=== PATIENT | male | born 1955 | race African-American/Black ===

== ENCOUNTER 2023-11-21 17:01 | Observation (INO) | payer MEDICARE, OTHER ==
[2023-11-21] MEDS: SODIUM CHLORIDE 0.9% 1,000 ML IV ONE ×2 (17:33→18:56)
[2023-11-21 17:50] LABS: Basophils % (A) 0 %; Eosinophils % (A) 1 %; HCT 43.3 % (39.0-53.0); HGB 13.7 gm/dL (13.0-17.5); Lymphocytes # (A) 1.4 k/uL (1.0-4.8); Lymphocytes % (A) 21 %; MCH 30.4 pg (25.0-35.0); MCHC 31.6 g/dL (31.0-37.0); MCV 96.2 fL (80.0-100.0); Mean Platelet Volume 7.6; Monocytes # (A) 0.5 k/uL (0-1.0); Monocytes % (A) 7 %; Neutrophils # (A) 4.5 k/uL (1.3-7.7); Neutrophils % (A) 69 %; Platelet Count 238 k/uL (150-450); RBC 4.51 m/uL (4.30-5.90); WBC 6.6 k/uL (3.8-10.6)
[2023-11-21 17:55] LABS: INR 1.1 (<1.2); Partial Thromboplastin Time 25.8 sec (22.0-30.0); Prothrombin Time 12.3 sec (10.0-12.5)
[2023-11-21 18:07] LABS: ALT 32 U/L (4-49); AST 59 U/L (17-59); African American GFR (CKD) 38 (>60 ml/min/1.73 sqM); Alkaline Phosphatase 78 U/L (38-126); Anion Gap 9 mmol/L; Blood Urea Nitrogen 41 mg/dL (9-20); Carbon Dioxide 34 mmol/L (22-30); Chloride 85 mmol/L (98-107); Glucose 97 mg/dL (74-99); Magnesium 2.1 mg/dL (1.6-2.3); Non-African American GFR(CKD) 33 (>60 ml/min/1.73 sqM); Sodium 128 mmol/L (137-145); Total Bilirubin 0.7 mg/dL (0.2-1.3); Total Protein 6.8 g/dL (6.3-8.2)
--- NOTE | 2023-11-21 18:24 | ED ---
General Adult HPI - General Chief complaint: Syncope Stated complaint: near syncope Time Seen by Provider: 11/21/23 17:09 Source: patient Mode of arrival: EMS Limitations: no limitations - History of Present Illness Initial comments: 68-year-old male presents to the emergency department from [place]. 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 Patient fell, possibly striking his head. He does not believe he was out for very long as he does remember most of the event. He is not on any blood thinners. He den ies any headache or visual changes. No lateralizing weakness. Patient believes that he passed out because he has not been eating or working. Patient has been detoxing from alcohol, cocaine and opiates for the past week. He was hospitalized in [place] and then transferred to [place] today. He used to drink 1/5 of alcohol plus several beers a day. Patient reports that he was placed on Suboxone for his withdrawals. He denies any history of cardiac disease. No chest pain or difficulty breathing. No nausea or vomiting at this time. No other alleviating, precipitating or modifying factors - Related Data Home Medications Medication Instructions Recorded Confirmed Pantoprazole Sodium [Protonix] 20 mg PO DAILY 11/21/23 11/21/23 amLODIPine [Norvasc] 10 mg PO DAILY 11/21/23 11/21/23 lisinopriL [Prinivil] 20 mg PO DAILY 11/21/23 11/21/23 Allergies Allergy/AdvReac Type Severity Reaction Status Date / Time codeine AdvReac Rash/Hives Verified 11/21/23 17:57 Review of Systems ROS Statement: Those systems with pertinent positive or pertinent negative responses have been documented in the HPI. ROS Other: All systems not noted in ROS Statement are negative. Past Medical History Past Medical History: Hypertension Additional Past Medical History / Comment(s): gastritis History of Any Multi-Drug Resistant Organisms: None Reported Past Surgical History: Tonsillectomy Smoking Status: Current every day smoker Past Alcohol Use History: Abuse, Daily, Heavy Past Drug Use History: Cocaine, Opiates - Past Family History Father Family Medical History: Hyperlipidemia General Exam Limitations: no limitations General appearance: alert, in no apparent distress Head exam: Present: normocephalic, other (Small hematoma right forehead) Eye exam: Present: normal appearance, PERRL, EOMI. Absent: scleral icterus, conjunctival injection, periorbital swelling ENT exam: Present: normal exam, mucous membranes moist Neck exam: Present: normal inspection. Absent: tenderness, meningismus, lymphadenopathy Respiratory exam: Present: normal lung sounds bilaterally. Absent: respiratory distress, wheezes, rales, rhonchi, stridor Cardiovascular Exam: Present: regular rate, normal rhythm, normal heart sounds. Absent: systolic murmur, diastolic murmur, rubs, gallop, clicks GI/Abdominal exam: Present: soft, normal bowel sounds. Absent: distended, tenderness, guarding, rebound, rigid Extremities exam: Present: normal inspection, full ROM, normal capillary refill. Absent: tenderness, pedal edema, joint swelling, calf tenderness Back exam: Present: normal inspection Neurological exam: Present: alert, oriented X3, CN II-XII intact Psychiatric exam: Present: normal affect, normal mood Skin exam: Present: warm, dry, intact, normal color. Absent: rash Course Vital Signs 11/21/23 11/21/23 11/21/23 17:04 18:13 18:40 Temperature 98 F Pulse Rate 89 90 88 Pulse Rate [ Sitting] Pulse Rate [ Standing] Pulse Rate [ Supine] Respiratory 22 20 20 Rate Blood Pressure 95/64 142/93 111/74 Blood Pressure [Left Arm Supine] Blood Pressure [Sitting] Blood Pressure [Standing] O2 Sat by Pulse 99 99 96 Oximetry 11/21/23 11/21/23 11/21/23 19:15 20:23 22:00 Temperature Pulse Rate 92 81 Pulse Rate [ 96 Sitting] Pulse Rate [ 93 Standing] Pulse Rate [ 84 Supine] Respiratory 18 16 Rate Blood Pressure 110/67 110/71 Blood Pressure 111/79 [Left Arm Supine] Blood Pressure 116/74 [Sitting] Blood Pressure 106/69 [Standing] O2 Sat by Pulse 97 96 Oximetry 11/22/23 11/22/23 11/22/23 00:00 02:00 04:00 Temperature Pulse Rate 80 80 81 Pulse Rate [ Sitting] Pulse Rate [ Standing] Pulse Rate [ Supine] Respiratory 16 16 16 Rate Blood Pressure 95/59 109/73 101/61 Blood Pressure [Left Arm Supine] Blood Pressure [Sitting] Blood Pressure [Standing] O2 Sat by Pulse 95 96 95 Oximetry 11/22/23 11/22/23 05:03 06:26 Temperature 98.1 F Pulse Rate 77 82 Pulse Rate [ Sitting] Pulse Rate [ Standing] Pulse Rate [ Supine] Respiratory 17 16 Rate Blood Pressure 104/68 117/77 Blood Pressure [Left Arm Supine] Blood Pressure [Sitting] Blood Pressure [Standing] O2 Sat by Pulse 91 L 100 Oximetry Medical Decision Making - Medical Decision Making Was pt. sent in by a medical professional or institution (, PA, BASEBALL INSPECTOR AND REPAIRER, urgent care, hospital, or [place] health care facility...) When possible be specific @ -[place] Did you speak to anyone other than the patient for history (EMS, parent, family, police, friend...)? What history was obtained from this source @ -EMS Did you review nursing and triage notes (agree or disagree)? Why? @ -I reviewed and agree with nursing and triage notes Were old charts reviewed (outside hosp., previous admission, EMS record, old EKG, old radiological studies, urgent care reports/EKG's, [place] health care facility records)? Report findings @ -I reviewed paperwork sent in with the patient from [place] Differential Diagnosis (chest pain, altered mental status, abdominal pain women, abdominal pain men, vaginal bleeding, weakness, fever, dyspnea, syncope, headache, dizziness, GI bleed, back pain, seizure, CVA, palpatations, mental health, musculoskeletal)? @ -Differential Syncope: Valvular disease, hypertrophic cardiomyopathy, pulmonary embolism, tamponade, tachycardia, bradycardia, IA, hypovolemia, hemorrhage, dissection, anemia, intracranial hemorrhage, seizure, hypoglycemia, carbon monoxide poisoning, this is not meant to be an all-inclusive list. EKG interpreted by me (3pts min.). @ -Yes and demonstrates sinus rhythm with a rate of 87. TX interval 152. QRS 89. QTc of 444. No acute ST segment elevations. Inverted T wave V3 X-rays interpreted by me (1pt min.). @ -None done CT interpreted by me (1pt min.). @ -Not done U/S interpreted by me (1pt. min.). @ -None done What testing was considered but not performed or refused? (CT, X-rays, U/S, labs)? Why? @ -CT of brain was considered as patient did hit his head with passing out however he has no acute neurologic findings at this time. Reports no headache, visual changes. No unilateral numbness or weakness. He has no confusion. He is able to answer all questions appropriately. Patient does not feel as if he requires imaging due to injury. CT brain found to be unnecessary at this time with risk of radiation exposure What meds were considered but not given or refused? Why? @ -None Did you discuss the management of the patient with other professionals (professionals i.e. , PA, BASEBALL INSPECTOR AND REPAIRER, lab, RT, psych nurse, case management social worker, fabric worker foreman, teacher, unarmed security officer, telehealth case manager)? Give summary @ -Spoke with Dr. Valera who will obstipation for syncope, hypotension and hypokalemia Was smoking cessation discussed for >3mins.? @ -No Was critical care preformed (if so, how long)? @ -No Were there social determinants of health that impacted care today? How? (Homelessness, low income, unemployed, alcoholism, drug addiction, transportat ion, low edu. Level, literacy, decrease access to med. care, assisted, rehab)? @ -Patient is in rehab Was there de-escalation of care discussed even if they declined (Discuss DNR or withdrawal of care, Hospice)? DNR status @ -No What co-morbidities impacted this encounter? (DM, HTN, Smoking, COPD, CAD, Cancer, CVA, ARF, Chemo, Hep., AIDS, mental health diagnosis, sleep apnea, morbid obesity)? @ -Polysubstance abuse Was patient admitted / discharged? Hospital course, mention meds given and route, prescriptions, significant lab abnormalities, going to OR and other pertinent info. @ -Upon arrival patient was seen and evaluated in trauma 1. He was found to be hypotensive however this does improve with fluid administration. Laboratory studies are conducted. Patient does have a small hematoma to the right forehead however no other acute neurologic findings and therefore CT is not warranted at this time. Laboratory studies do return and demonstrate hypokalemia. This is replaced. Recommended admission for repeat laboratory studies, fluid hydration, blood pressure recheck. Patient was agreeable to this and was admitted to Dr. Valera in stable condition Undiagnosed new problem with uncertain prognosis? @ -No Drug Therapy requiring intensive monitoring for toxicity (Heparin, Nitro, In sulin, Cardizem)? @ -No Were any procedures done? @ -No Diagnosis/symptom? @ -Acute syncope, blunt head trauma, acute nausea and vomiting, acute hypokalemia Acute, or Chronic, or Acute on Chronic? @ -Acute Uncomplicated (without systemic symptoms) or Complicated (systemic symptoms)? @ -Complicated Side effects of treatment? @ -No Exacerbation, Progression, or Severe Exacerbation? @ -No Poses a threat to life or bodily function? How? (Chest pain, USA, IA, pneumonia, PE, COPD, DKA, ARF, appy, cholecystitis, CVA, Diverticulitis, Homicidal, Suicidal, threat to staff... and all critical care pts) @ -No - Lab Data Result diagrams: 11/22/23 07:55 11/23/23 05:49 Lab Results 11/21/23 11/21/23 11/21/23 Range/Units 17:36 17:36 17:36 WBC 6.6 (3.8-10.6) k/uL RBC 4.51 (4.30-5.90) m/uL Hgb 13.7 (13.0-17.5) gm/dL Hct 43.3 (39.0-53.0) % MCV 96.2 (80.0-100.0) fL MCH 30.4 (25.0-35.0) pg MCHC 31.6 (31.0-37.0) g/dL RDW 13.0 (11.5-15.5) % Plt Count 238 (150-450) k/uL MPV 7.6 Neutrophils % 69 % Lymphocytes % 21 % Monocytes % 7 % Eosinophils % 1 % Basophils % 0 % Neutrophils # 4.5 (1.3-7.7) k/uL Lymphocytes # 1.4 (1.0-4.8) k/uL Monocytes # 0.5 (0-1.0) k/uL Eosinophils # 0.0 (0-0.7) k/uL Basophils # 0.0 (0-0.2) k/uL PT 12.3 (10.0-12.5) sec INR 1.1 (<1.2) APTT 25.8 (22.0-30.0) sec Sodium 128 L (137-145) mmol/L Potassium 2.7 L* (3.5-5.1) mmol/L Chloride 85 L (98-107) mmol/L Carbon Dioxide 34 H (22-30) mmol/L Anion Gap 9 mmol/L BUN 41 H (9-20) mg/dL Creatinine 2.02 H (0.66-1.25) mg/dL Est GFR (CKD-EPI)AfAm 38 (>60 ml/min/1.73 sqM) Est GFR (CKD-EPI)NonAf 33 (>60 ml/min/1.73 sqM) Glucose 97 (74-99) mg/dL Calcium 8.0 L (8.4-10.2) mg/dL Magnesium 2.1 (1.6-2.3) mg/dL Total Bilirubin 0.7 (0.2-1.3) mg/dL AST 59 (17-59) U/L ALT 32 (4-49) U/L Alkaline Phosphatase 78 (38-126) U/L Troponin I (0.000-0.034) ng/mL Total Protein 6.8 (6.3-8.2) g/dL Albumin 4.0 (3.5-5.0) g/dL 11/21/23 Range/Units 17:36 WBC (3.8-10.6) k/uL RBC (4.30-5.90) m/uL Hgb (13.0-17.5) gm/dL Hct (39.0-53.0) % MCV (80.0-100.0) fL MCH (25.0-35.0) pg MCHC (31.0-37.0) g/dL RDW (11.5-15.5) % Plt Count (150-450) k/uL MPV Neutrophils % % Lymphocytes % % Monocytes % % Eosinophils % % Basophils % % Neutrophils # (1.3-7.7) k/uL Lymphocytes # (1.0-4.8) k/uL Monocytes # (0-1.0) k/uL Eosinophils # (0-0.7) k/uL Basophils # (0-0.2) k/uL PT (10.0-12.5) sec INR (<1.2) APTT (22.0-30.0) sec Sodium (137-145) mmol/L Potassium (3.5-5.1) mmol/L Chloride (98-107) mmol/L Carbon Dioxide (22-30) mmol/L Anion Gap mmol/L BUN (9-20) mg/dL Creatinine (0.66-1.25) mg/dL Est GFR (CKD-EPI)AfAm (>60 ml/min/1.73 sqM) Est GFR (CKD-EPI)NonAf (>60 ml/min/1.73 sqM) Glucose (74-99) mg/dL Calcium (8.4-10.2) mg/dL Magnesium (1.6-2.3) mg/dL Total Bilirubin (0.2-1.3) mg/dL AST (17-59) U/L ALT (4-49) U/L Alkaline Phosphatase (38-126) U/L Troponin I <0.012 (0.000-0.034) ng/mL Total Protein (6.3-8.2) g/dL Albumin (3.5-5.0) g/dL Disposition Clinical Impression: Syncope, Hyponatremia, Hypokalemia, Blunt head injury Disposition: ADMITTED IP TO THIS [facility] Condition: Stable Is patient prescribed a controlled substance at d/c from ED?: No Time of Disposition: 19:44 Decision to Admit Reason: Admit from EC Decision Date: 11/21/23 Decision Time: 19:44
[2023-11-21 18:32] LABS: Potassium 2.7 mmol/L (3.5-5.1)
--- NOTE | 2023-11-21 18:38 | XR ---
EXAMINATION TYPE: XR chest 2V DATE OF EXAM: 11/21/2023 6:03 PM COMPARISON: None TECHNIQUE: XR chest 2V Frontal and lateral views of the chest. CLINICAL INDICATION:Male, 68 years old with history of syncope; FINDINGS: Lungs/Pleura: There is no evidence of pleural effusion, focal consolidation, or pneumothorax. Pulmonary vascularity: Unremarkable. Heart/mediastinum: Cardiomediastinal silhouette is unremarkable. Musculoskeletal: No acute osseous pathology. IMPRESSION: No acute cardiopulmonary disease/process.
[2023-11-21] MEDS: POTASSIUM CHLORIDE ER 20 MEQ TAB.ER PO STA (18:49)
[2023-11-21] MEDS: POTASSIUM CHLORIDE 20 MEQ in WATER FOR INJECTION 1 100ML.BAG IVPB STA (18:55)
[2023-11-21] MEDS ORDERED: NALOXONE 0.4 MG/ML 1 ML VIAL IV PRN (19:49)
[2023-11-21] MEDS: SODIUM CHLORIDE 0.9% 1,000 ML IV SCH (20:26)
--- NOTE | 2023-11-22 00:41 | P.HPIM ---
History of Present Illness H&P Date: 11/21/23 Patient is a 68-year-old male with a PMH of polysubstance abuse who was sent in from [place] for syncopal episode. The patient reports that he had been using multiple substances over the last several weeks but quit 5 days ago. He also reports drinking 1/5 of hard liquor daily with his last drink also 5 days ago. Notes that he had been admitted to [place] earlier today where he became lightheaded, and fell to the ground, hitting the front of his head. There were no reports of urinary incontinence or shaking movements. The patient reports that multiple witnesses saw the fall and that he regained consciousness quickly after. States that he has had severely diminished oral intake over the past several weeks as he has been coming off of multiple substances. Reports feeling at baseline at the time of interview. Denied experiencing headaches, neck pain, visual disturbances, chest discomfort, shortness of breath, palpitations, fever, chills, cough, nausea, vomiting, abdominal pain, diarrhea. Chest x-ray in the emergency room was unremarkable. EKG revealed sinus rhythm at 87 bpm with T wave inversion in leads V2 and V3 as reviewed by me. Laboratory evaluation was remarkable for sodium 128, potassium 2.7, chloride 85, CO2 34, BUN 41, creatinine 2.02, troponin less than 0.012 with BP upon arrival 95/64, respiratory rate 22, SpO2 99% on room air with pulse 89 and temp 98 F. Orthostatics in the emergency room after having received IV fluids were negative. ED documentation reviewed and case discussed with ED provider. Review of systems: Pertinent positives and negatives as discussed in HPI, a complete review of systems was performed and all other systems are negative. Physical examination: Vital signs reviewed General: non toxic, no distress, appears at stated age, normal weight Derm: no unusual rashes/lesions, warm Head: atraumatic, normocephalic, symmetric Eyes: EOMI, no lid lag, anicteric sclera, pupils equal round reactive to light ENT: Nose and ears atraumatic Neck: No cervical lymphadenopathy, trachea midline, supple Mouth: no lip lesion, mucus membranes moist Cardiovascular: S1S2 reg, no murmur, positive dorsalis pedis pulse bilateral, no edema Lungs: CTA bilateral, no rhonchi, no rales, no accessory muscle use Abdominal: soft, nontender to palpation, no guarding Ext: muscle strength 5 out of 5 in all 4 extremities grossly, no gross muscle atrophy, no contractures, Neuro: CN II-XI grossly intact, no gross focal neuro deficits Psych: Alert, oriented, appropriate affect Assessment: Syncope, likely orthostatic due to dehydration Hypokalemia Hypochloremic hyponatremia, likely due to poor oral intake Kidney injury, acute versus chronic Polysubstance abuse including alcohol Imaging: Chest x-ray in the emergency room was unremarkable. EKG revealed sinus rhythm at 87 bpm with T wave inversion in leads V2 and V3 as reviewed by me. Data Review: Laboratory evaluation was remarkable for sodium 128, potassium 2.7, chloride 85, CO2 34, BUN 41, creatinine 2.02, troponin less than 0.012 with BP upon arrival 95/64, respiratory rate 22, SpO2 99% on room air with pulse 89 and temp 98 F. Orthostatics in the emergency room after having received IV fluids were negative. Plan: Fall precautions Plan continue IV fluids with normal saline 130 cc/h Cardiac monitoring Obtain CT brain without contrast Replace potassium Monitor BMP Obtain Echocardiogram DVT prophylaxis: Lovenox subcu The patient is admitted with an anticipated less than 2 midnight stay for evaluation of syncope CODE STATUS: Full Code Discussed with: Patient Anticipated discharge place: [place] Past Medical History Past Medical History: Hypertension Additional Past Medical History / Comment(s): gastritis History of Any Multi-Drug Resistant Organisms: None Reported Past Surgical History: Tonsillectomy Smoking Status: Current every day smoker Past Alcohol Use History: Abuse, Daily, Heavy Past Drug Use History: Cocaine, Opiates - Past Family History Father Family Medical History: Hyperlipidemia Medications and Allergies Home Medications Medication Instructions Recorded Confirmed Type Pantoprazole Sodium [Protonix] 20 mg PO DAILY 11/21/23 11/21/23 History amLODIPine [Norvasc] 10 mg PO DAILY 11/21/23 11/21/23 History lisinopriL [Prinivil] 20 mg PO DAILY 11/21/23 11/21/23 History Allergies Allergy/AdvReac Type Severity Reaction Status Date / Time codeine AdvReac Rash/Hives Verified 11/21/23 17:57 Physical Exam Vitals: Vital Signs Temp Pulse Pulse Pulse Pulse Resp BP 11/22/23 00:00 80 16 95/59 11/21/23 22:00 81 16 110/71 11/21/23 20:23 96 93 84 11/21/23 19:15 92 18 110/67 11/21/23 18:40 88 20 111/74 11/21/23 18:13 90 20 142/93 11/21/23 17:04 98 F 89 22 95/64 BP BP BP Pulse Ox 11/22/23 00:00 95 11/21/23 22:00 96 11/21/23 20:23 111/79 116/74 106/69 11/21/23 19:15 97 11/21/23 18:40 96 11/21/23 18:13 99 11/21/23 17:04 99 Intake and Output 11/21/23 11/21/23 11/22/23 14:59 22:59 06:59 Other: Weight 63.503 kg Results CBC & Chem 7: 11/21/23 17:36 11/21/23 17:36 Labs: Abnormal Lab Results - Last 24 Hours (Table) 11/21/23 Range/Units 17:36 Sodium 128 L (137-145) mmol/L Potassium 2.7 L* (3.5-5.1) mmol/L Chloride 85 L (98-107) mmol/L Carbon Dioxide 34 H (22-30) mmol/L BUN 41 H (9-20) mg/dL Creatinine 2.02 H (0.66-1.25) mg/dL Calcium 8.0 L (8.4-10.2) mg/dL
--- NOTE | 2023-11-22 01:19 | CT ---
EXAM: CT Head Without Intravenous Contrast CLINICAL HISTORY: ITS.REASON CT Reason: fall with head trauma TECHNIQUE: Axial computed tomography images of the head/brain without intravenous contrast. CTDI is 49.2 mGy and DLP is 1125.4 mGy-cm. This CT exam was performed using one or more of the following dose reduction techniques: automated exposure control, adjustment of the mA and/or kV according to patient size, and/or use of iterative reconstruction technique. COMPARISON: No relevant prior studies available. FINDINGS: Brain: Unremarkable. No hemorrhage. No significant white matter disease. No edema. Ventricles: No acute findings. No ventriculomegaly. Bones/joints: Old fracture left lamina papyracea with medial bowing. Old fracture of the left nasal bone. Soft tissues: Mild swelling along the frontal scalp. Sinuses: Chronic left maxillary sinusitis. Mastoid air cells: Unremarkable as visualized. No mastoid effusion. IMPRESSION: No acute intracranial pathology.
[2023-11-22] MEDS: POTASSIUM CHLORIDE ER 20 MEQ TAB.ER PO STA (01:40)
[2023-11-22] MEDS: ENOXAPARIN 40 MG/0.4 ML SYRINGE SQ SCH (08:31)
[2023-11-22 09:32] LABS: African American GFR (CKD) 61 (>60 ml/min/1.73 sqM); Anion Gap 5 mmol/L; Blood Urea Nitrogen 36 mg/dL (9-20); Calcium 7.9 mg/dL (8.4-10.2); Carbon Dioxide 30 mmol/L (22-30); Chloride 95 mmol/L (98-107); Glucose 87 mg/dL (74-99); Magnesium 2.1 mg/dL (1.6-2.3); Non-African American GFR(CKD) 53 (>60 ml/min/1.73 sqM); Potassium 4.2 mmol/L (3.5-5.1); Sodium 130 mmol/L (137-145)
[2023-11-22] MEDS: PANTOPRAZOLE 40 MG TABLET PO SCH (12:05)
--- NOTE | 2023-11-22 15:39 | P.PN ---
Subjective Progress Note Date: 11/22/23 Hospital Course: 68-year-old male with history of polysubstance use, opiate use, cocaine use, a lcohol dependence presenting from [place] after syncopal episode. He claims that he took multiple substances as well as alcohol about 5 days ago. He also claims that he was recently in [facility] where he was having chest pain, and had an angiogram. He is not sure what was found. Chest x-ray in the emergency room was unremarkable. EKG revealed sinus rhythm at 87 bpm with T wave inversion in leads V2 and V3. Laboratory evaluation was remarkable for sodium 128, potassium 2.7, chloride 85, CO2 34, BUN 41, creatinine 2.02, troponin less than 0.012 with BP upon arrival 95/64, respiratory rate 22, SpO2 99% on room air with pulse 89 and temp 98 F. Orthostatic vitals positive. Was given IV f luids. Also given IV potassium. Subjective: Seen and examined at bedside. No acute events overnight. Denies any further syncopal episodes. Pertinent positives and negatives as discussed above, a complete review of systems was performed and all other systems are negative. Vitals Signs Reviewed. General: Nontoxic, no distress, appears at stated age, thin appearing Derm: Warm, dry Head: Atraumatic, normocephalic, symmetric Eyes: EOMI, no lid lag, anicteric sclera Mouth: No lip lesion, mucus membranes moist Cardiovascular: S1S2 reg, no murmur Lungs: CTA bilateral, no rhonchi, no rales, no accessory muscle use Abdominal: Soft, nontender to palpation, no guarding, no appreciable organome bruno Ext: No gross muscle atrophy, no edema, no contractures Neuro: CN II-XI grossly intact, no focal neuro deficits Psych: Alert, oriented, appropriate affect Data Reviewed Today: Pertinent Labs: Sodium 130, potassium 4.2, bicarb 30, creatinine 1.38, magnesium 2.1 Imaging: Head CT did not show any acute process. Assessment and Plan: Orthostatic hypotension Syncope likely secondary to above Hypovolemic hyponatremia, improving Hypokalemia, resolved Acute kidney injury, resolving History of polysubstance abuse History of alcohol dependence GERD EKG changes -Repeat orthostatic vitals -Continue IV fluids normal saline at 130 cc an hour -Repeat BMP tomorrow morning -Hold lisinopril -Blood pressure slightly on the lower side, continue to hold home amlodipine as well -Oral thiamine 100 mg daily -Monitor on telemetry -Continue pantoprazole 40 daily oral -Requested records from [facility] with regards to angiogram -Echocardiogram pending DVT ppx: Lovenox Code status: Full code Anticipated discharge place: Pending clinical course Anticipated discharge time: Pending clinical course Objective - Vital Signs Vital signs: Vital Signs Temp 99.1 F 11/22/23 14:42 Pulse 85 11/22/23 14:42 Resp 17 11/22/23 14:42 BP 122/73 11/22/23 14:42 Pulse Ox 96 11/22/23 14:42 FiO2 Intake & Output 11/21/23 11/22/23 11/22/23 18:59 06:59 18:59 Intake Total 118 Balance 118 Weight 63.503 kg 63.503 kg Intake: Oral 118 Other: Voiding Method Toilet - Labs CBC & Chem 7: 11/21/23 17:36 11/22/23 07:55 Labs: Abnormal Lab Results - Last 24 Hours (Table) 11/21/23 11/22/23 Range/Units 17:36 07:55 Sodium 128 L 130 L (137-145) mmol/L Potassium 2.7 L* (3.5-5.1) mmol/L Chloride 85 L 95 L (98-107) mmol/L Carbon Dioxide 34 H (22-30) mmol/L BUN 41 H 36 H (9-20) mg/dL Creatinine 2.02 H 1.38 H (0.66-1.25) mg/dL Calcium 8.0 L 7.9 L (8.4-10.2) mg/dL
[2023-11-22] MEDS: THIAMINE 100 MG TAB PO SCH (15:48)
[2023-11-22 16:22] LABS: HCT 39.2 % (39.6-50.0); HGB 12.3 g/dL (13.0-17.0); MCH 30.4 pg (27.0-32.0); MCHC 31.4 g/dL (32.0-37.0); Mean Platelet Volume 10.1 FL (9.5-12.2); NRBC Per 100 WBC 0 X 10*3/uL (0.00-0.01); Platelet Count 232 X 10*3/uL (140-440); RBC 4.04 X 10*6/uL (4.40-5.60); RDW 14.1 % (11.5-14.5); WBC 7.67 X 10*3/uL (4.50-10.00)
[2023-11-22 16:23] LABS: Basophils # (A) 0.02 X 10*3/uL (0.00-0.10); Basophils % (A) 0.3 %; Eosinophils # (A) 0.07 X 10*3/uL (0.04-0.35); Eosinophils % (A) 0.9 %; Lymphocytes # (A) 2.26 X 10*3/uL (0.90-5.00); Lymphocytes % (A) 29.5 %; Monocytes # (A) 0.89 X 10*3/uL (0.20-1.00); Monocytes % (A) 11.6 %; Neutrophils % (A) 57.3 %
--- NOTE | 2023-11-23 10:33 | CA ---
Transthoracic Echo Report Name: Justin Hughes Age: 68 Gender: M : 1955 Exam Date: 11/22/2023 14:00 Exam Location: [facility] [facility] Ht (in): 67 Wt (lb): 140 Ordering Physician: Momo Valera MD Attending/Referring Phys: Administrative Officer Masha Flores RDCS Procedure CPT: Indications: Syncope Cardiac Hx: Technical Quality: Good Contrast 1: Total Dose (mL): Contrast 2: Total Dose (mL): MEASUREMENTS (Male / Female) Normal Values 2D ECHO LV Diastolic Diameter PLAX 4.7 cm 4.2 - 5.9 / 3.9 - 5.3 cm LV Systolic Diameter PLAX 2.3 cm IVS Diastolic Thickness 0.8 cm 0.6 - 1.0 / 0.6 - 0.9 cm LVPW Diastolic Thickness 0.9 cm 0.6 - 1.0 / 0.6 - 0.9 cm LV Relative Wall Thickness 0.4 RV Internal Dim ED PLAX 3.7 cm LVOT Diameter 2.3 cm LV Diastolic Volume MOD BP 97.4 cm??? 67 - 155 / 56 - 104 cm??? LV Systolic Volume MOD BP 27.7 cm??? 22 - 58 / 19 - 49 cm??? LV Ejection Fraction MOD BP 71.6 % >= 55 % LV Cardiac Index MOD BP 3581.8 cm???/min???m??? LV Diastolic Volume MOD 4C 101.3 cm??? LV Systolic Volume MOD 4C 27.1 cm??? LV Ejection Fraction MOD 4C 73.2 % LV Cardiac Index MOD 4C 3807.1 cm???/min???m??? LV Diastolic Length 4C 8.8 cm LV Systolic Length 4C 7.6 cm LV Diastolic Volume MOD 2C 89.5 cm??? LV Systolic Volume MOD 2C 24.5 cm??? LV Ejection Fraction MOD 2C 72.6 % LV Cardiac Index MOD 2C 3335.3 cm???/min???m??? LV Diastolic Length 2C 8.4 cm LV Systolic Length 2C 6.5 cm LA Volume 60.4 cm??? 18 - 58 / 22 - 52 cm??? LA Volume Index 34.8 cm???/m??? 16 - 28 cm???/m??? Ascending Aorta Diameter 3.9 cm DOPPLER AV Peak Velocity 200.4 cm/s AV Peak Gradient 16.1 mmHg AV Mean Velocity 137.1 cm/s AV Mean Gradient 8.6 mmHg AV Velocity Time Integral 32.6 cm LVOT Peak Velocity 132.2 cm/s LVOT Peak Gradient 7.0 mmHg LVOT Velocity Time Integral 21.1 cm LVOT Stroke Volume 87.2 cm??? LVOT Stroke Volume Index 50.2 ml/m??? LVOT Cardiac Index 4477.4 cm???/min???m??? AV Area Cont Eq vti 2.7 cm??? AV Area Cont Eq pk 2.7 cm??? MV Area PHT 2.7 cm??? Mitral E Point Velocity 58.7 cm/s Mitral A Point Velocity 78.2 cm/s Mitral E to A Ratio 0.8 MV Deceleration Time 282.3 ms TR Peak Velocity 244.1 cm/s TR Peak Gradient 23.8 mmHg Right Atrial Pressure 5.0 mmHg Pulmonary Artery Systolic Pressu 28.8 mmHg Right Ventricular Systolic Press 28.8 mmHg PV Peak Velocity 96.8 cm/s PV Peak Gradient 3.8 mmHg FINDINGS Left Ventricle Left ventricular ejection fraction is estimated at 60-65 %. Left ventricle not well visualized. Left ventricular wall thickness normal. No obvious regional wall motion abnormalities. Prominent left ventricular trabeculations. Right Ventricle Normal right ventricular size and function.right ventricular systolic pressure within normal limits. Right Atrium Normal right atrial size. Left Atrium Mildly increased left atrial volume. Mitral Valve Mitral valve thickened. Mitral annular calcification. No evidence for mitral valve prolapse. No mitral stenosis. Trace mitral regurgitation. Aortic Valve Trileaflet aortic valve. Focal thickening of the aortic valve cusps. No aortic stenosis. No aortic regurgitation. Tricuspid Valve Structurally normal tricuspid valve. No tricuspid stenosis. Trace tricuspid regurgitation. Pulmonic Valve Structurally normal pulmonic valve. No pulmonic stenosis. Trace pulmonic regurgitation. Pericardium No pericardial effusion. Aorta Normal size aortic root and proximal ascending aorta. CONCLUSIONS Normal LV systolic function Thickened mitral valve leaflets mild mitral regurgitation Aortic sclerosis with no stenosis or regurgitation Aneurysmal interatrial septum Previewed by: Dr. Kofi Eli MD (Electronically Signed) Final Date: 23 Nov 2023 10:32
[2023-11-23 12:31] LABS: African American GFR (CKD) >90 (>60 ml/min/1.73 sqM); Anion Gap 2 mmol/L; Blood Urea Nitrogen 20 mg/dL (9-20); Carbon Dioxide 31 mmol/L (22-30); Chloride 98 mmol/L (98-107); Glucose 92 mg/dL (74-99); Magnesium 1.6 mg/dL (1.6-2.3); Non-African American GFR(CKD) 78 (>60 ml/min/1.73 sqM); Sodium 131 mmol/L (137-145)
--- NOTE | 2023-11-23 14:14 | P.DS ---
Providers Date of admission: 11/21/23 19:50 Expected date of discharge: 11/23/23 Attending physician: Momo Valera MD Primary care physician: Stated None Hospital Course: 68-year-old male with history of polysubstance use, opiate use, cocaine use, alcohol dependence presenting from [place] after syncopal episode. He claims that he took multiple substances as well as alcohol about 5 days ago. He also claims that he was recently in [place] where he was having chest pain, and had an angiogram. He is not sure what was found. Chest x-ray in the emergency room was unremarkable. EKG revealed sinus rhythm at 87 bpm with T wave invers ion in leads V2 and V3. Laboratory evaluation was remarkable for sodium 128, potassium 2.7, chloride 85, CO2 34, BUN 41, creatinine 2.02, troponin less than 0.012 with BP upon arrival 95/64, respiratory rate 22, SpO2 99% on room air with pulse 89 and temp 98 F. Orthostatic vitals positive. Was given IV fluids. Also given IV potassium. 11/22 Patient was seen and examined. Lightheadedness resolved. Na improved to 131. K improved to 4. Renal function now within normal limits. Echo EF 60-65%, mild MR, aortic sclerosis, aneurysmal interatrial septum. Plans for discharge back to [place] today. General: nontoxic, no distress, appears at stated age Derm: warm, dry Head: atraumatic, normocephalic, symmetric Eyes: EOMI, no lid lag, anicteric sclera ENT: Nose and ears atraumatic Neck: No thyromegaly, supple Mouth: no lip lesion, mucus membranes moist Cardiovascular: Normal S1 S2. No murmurs rubs gallops. Lungs: Clear to auscultation bilaterally. No accessory muscle use Discharge Diagnosis: Orthostatic hypotension Syncope likely secondary to above Hypovolemic hyponatremia, improving Hypokalemia, resolved Acute kidney injury, resolving History of polysubstance abuse History of alcohol dependence GERD EKG changes This complex discharge took 35 minutes to complete. Patient Condition at Discharge: Stable Plan - Discharge Summary Discharge Rx Participant: No New Discharge Prescriptions: Continue amLODIPine [Norvasc] 10 mg PO DAILY Pantoprazole Sodium [Protonix] 20 mg PO DAILY lisinopriL [Prinivil] 20 mg PO DAILY Discharge Medication List Pantoprazole Sodium [Protonix] 20 mg PO DAILY 11/21/23 [History] amLODIPine [Norvasc] 10 mg PO DAILY 11/21/23 [History] lisinopriL [Prinivil] 20 mg PO DAILY 11/21/23 [History] Follow up Appointment(s)/Referral(s): Nonstaff,Physician [REFERRING] - 1-2 days Activity/Diet/Wound Care/Special Instructions: [place] - [phone] - call for transport at discharge Discharge/Stand Alone Forms: AA Meetings [address] - [facility], AA Meetings [facility], Who Do I Call?, Community Resources, Inp Substance Abuse Facilities, Outpatient Therapy List Discharge Disposition: OTHER INSTITUTION NOT DEFINED
[2023-11-23 15:08] VITALS: BP 154/74; PULSE 74; RESP 17; TEMP 97.8
== END 2023-11-23 16:00 | disposition other institution (70) ==
LOC: EC 17:01 → 6NMEDSUR 19:50
PROVIDERS: ADMIT Internal Medicine; ATTEND Internal Medicine
DX: I95.1 Orthostatic hypotension (principal); E87.6 Hypokalemia; E87.1 Hypo-osmolality and hyponatremia; N17.9 Acute kidney failure, unspecified; F10.10 Alcohol abuse, uncomplicated; F11.90 Opioid use, unspecified, uncomplicated; F14.90 Cocaine use, unspecified, uncomplicated; K21.9 Gastro-esophageal reflux disease without esophagitis; R94.31 Abnormal electrocardiogram [ECG] [EKG]; Z79.899 Other long term (current) drug therapy
CPT/HCPCS: 96372 ×2; 96361; 96365; 96366; 99285; 36415; 93005; 93306; 80053; 80048 ×2; 83735 ×3; 84484; 85025 ×2; 85610; 85730; 71046; 70450; G0378 ×3; J3480; J1650 ×2